=== PATIENT | male | born 1970 | race Two or more races ===

== ENCOUNTER → 2016-07-28 | Outpatient (CLI) | payer OTHER ==
[~2016-07-28] VITALS: Ht 185.4 cm; Wt 99.7 kg
[~2016-07-28] MED LIST: ASPI1TAB PO; CELE100C; FISH1000 PO; LIDOCAINE 2% INJ 100 MG/5 ML SDV (FOR ANES.) As Ordered ONE; LIPI20TA PO; MOTR200T44 PO; MULT1TAB10 PO; MULTIVIT; NS 1,000 ML IV SCH; PROPOFOL 200 MG/20 ML VIAL As Ordered ONE; SILD50TA PO; ZYBA150T PO
--- NOTE | 2016-07-28 11:22 | ROOR ---
Patient Name: José Miguel Gary Procedure Date: 07/28/2016 10:59 AM Date of : 1970 Age: 46 Room: [facility] Gender: Male Note Status: Finalized Procedure: Colonoscopy Indications: Screening in patient at increased risk: Family history of 1st-degree relative with colorectal cancer before age 60 years Providers: José Miguel LUGO MD Referring MD: DENNISE BOWDEN MD Requesting Provider: Medicines: Monitored Anesthesia Care Complications: No immediate complications. Procedure: Pre-Anesthesia Assessment: - The heart rate, respiratory rate, oxygen saturations, blood pressure, adequacy of pulmonary ventilation, and response to care were monitored throughout the procedure. The Colonoscope was introduced through the anus and advanced to the cecum, identified by appendiceal orifice and ileocecal valve. The colonoscopy was technically difficult and complex due to inadequate bowel prep. The patient tolerated the procedure well. The quality of the bowel preparation was poor. Findings: The perianal and digital rectal examinations were normal. (Colon Prep was POOR, Inadequate Visualisation) Impression: - Preparation of the colon was poor. - (Colon Prep was POOR, Inadequate Visualisation) - No specimens collected. Recommendation: - Repeat colonoscopy at the next available appointment because the bowel preparation was poor. José Miguel Lugo MD José Miguel LUGO MD 07/28/2016 11:21:34 AM This report has been signed electronically. Number of Addenda: 0 Note Initiated On: 07/28/2016 10:59 AM Estimated Blood Loss: Estimated blood loss: none.
[2016-07-28 11:40] VITALS: BP 121/70
== END ==
LOC: M OPP 10:37
PROVIDERS: ATTEND Internal Medicine Gastroenterology
DX: K62.5 Hemorrhage of anus and rectum (principal); Z80.0 Family history of malignant neoplasm of digestive organs; E78.5 Hyperlipidemia, unspecified; R06.02 Shortness of breath; M54.2 Cervicalgia; Z79.82 Long term (current) use of aspirin; Z79.899 Other long term (current) drug therapy

== ENCOUNTER → 2016-08-31 | Outpatient (CLI) | payer OTHER ==
[~2016-08-31] VITALS: Ht 185.4 cm; Wt 93.0 kg
[~2016-08-31] MED LIST changes: -LIDOCAINE 2% INJ 100 MG/5 ML SDV (FOR ANES.) As Ordered ONE; -PROPOFOL 200 MG/20 ML VIAL As Ordered ONE
== END | disposition home or self-care (01) ==
LOC: M OPP 11:50
PROVIDERS: ATTEND Internal Medicine Gastroenterology
DX: Z53.9 Procedure and treatment not carried out, unspecified reason (principal)

== ENCOUNTER 2020-06-26 15:58 | Emergency (ER) | payer OTHER, SELFPAY ==
[~2020-06-26] VITALS: Ht 185.4 cm; Wt 100.0 kg
[~2020-06-26 15:58] MED LIST changes: -ASPI1TAB PO; +ASPI81TA26 PO; -NS 1,000 ML IV SCH
[2020-06-26] MEDS ORDERED: ONDANSETRON 4MG/2ML VIAL IV ONE (16:15)
[2020-06-26] MEDS ORDERED: MORPHINE 4 MG/ML 1ML VIAL/SYRINGE (J2270) IV PRN (16:15)
--- NOTE | 2020-06-26 16:32 | REP ---
INDICATION: trauma COMPARISON: None. TECHNIQUE: AP, lateral, bilateral oblique views. FINDINGS: Fracture dislocation at the ankle with fractures of the distal fibular metaphysis, medial malleolus, and posterior malleolus. Associated disruption at the tibiotalar joint with overlying soft tissue swelling. IMPRESSION: Trimalleolar fracture dislocation at the ankle. <Electronically signed by Alex Lewis > 06/26/20 [id number]
[2020-06-26 16:49] LABS: HEMATOCRIT 50.1 % (42.0-52.0); HEMOGLOBIN 15.7 g/dl (13.5-17.5); MEAN CORPUSCULAR HEMOGLOBIN 28.8 pg (27.0-33.0); MEAN CORPUSCULAR HGB CONC 31.3 g/dl (32.0-36.5); MEAN CORPUSCULAR VOLUME 91.9 fl (80.0-96.0); PLATELET COUNT, AUTOMATED 276 10^3/uL (150-450); RED BLOOD COUNT 5.45 10^6/uL (4.30-6.10); WHITE BLOOD COUNT 14.9 10^3/uL (4.0-10.0)
[2020-06-26] MEDS ORDERED: VITA200044 PO (16:53)
[2020-06-26 17:09] LABS: BLOOD UREA NITROGEN 14 MG/DL (7-18); CALCIUM LEVEL 9.2 MG/DL (8.5-10.1); CARBON DIOXIDE LEVEL 26 MEQ/L (21-32); CHLORIDE LEVEL 106 MEQ/L (98-107); CREATININE FOR GFR 1.31 MG/DL (0.70-1.30); GLOMERULAR FILTRATION RATE > 60.0 (>56); GLUCOSE, FASTING 91 MG/DL (70-100); POTASSIUM SERUM 4.2 MEQ/L (3.5-5.1); SODIUM LEVEL 139 MEQ/L (136-145)
[2020-06-26 17:19] LABS: INR 0.97; PROTHROMBIN TIME 13.1 SECONDS (12.5-14.3)
[2020-06-26] MEDS ORDERED: PERC5TAB12 PO (17:31)
[2020-06-26] MEDS ORDERED: HYDROMORPHONE HCL 0.5 MG/ 0.5 ML SYRINGE (J1170 PER 1) IV ONE (17:45)
[2020-06-26 17:55] LABS: RSV AMPLIFICATION NEGATIVE (NEGATIVE)
--- NOTE | 2020-06-26 18:35 | REP ---
INDICATION: post reduction COMPARISON: 06/26/2020 at 4:17 p.m. TECHNIQUE: AP, lateral, bilateral oblique views. FINDINGS: Patient is status post casting and immobilization for trimalleolar ankle fractures. IMPRESSION: Trimalleolar ankle fractures. <Electronically signed by Alex Lewis > 06/26/20 [id number]
--- NOTE | 2020-06-26 18:38 | REPVR ---
PROCEDURE INFORMATION: Exam: CT Left Lower Extremity Without Contrast, Ankle Exam date and time: 06/26/2020 6:15 PM Age: 50 years old Clinical indication: Injury or trauma; Fall; Fracture, traumatic; Closed fracture; Ankle; Left; Not specified; Additional info: FX TECHNIQUE: Imaging protocol: CT of the Left lower extremity without contrast was performed. Exam focused on the ankle. Radiation optimization: All CT scans at this facility use at least one of these dose optimization techniques: automated exposure control; mA and/or kV adjustment per patient size (includes targeted exams where dose is matched to clinical indication); or iterative reconstruction. COMPARISON: CR Ankle, complete 06/26/2020 4:17 PM FINDINGS: Splint material is present involving the ankle. Soft tissue swelling is present without soft tissue defect. Improved osseous alignment after closed reduction and casting. Comminuted, predominantly transverse medial malleolar fracture is present with 2 mm articular surface incongruity between the medial aspect of the base of the medial malleolus and the tibial plafond and. 5 mm lateral subluxation of the talus relative to the distal tibial plafond. Vertical component of the distal medial tibial fracture extends through the medial metaphysis 3.5 cm cephalad to the ankle joint level. Comminuted intra-articular posterior malleolar fracture involving the posterior 1 cm of articular surface with impaction and comminution medially and extension through the posterior distal metaphysis 2.5 cm cephalad to the ankle joint level. Oblique fibular fracture centered 2 cm above the ankle joint, extending up to 4 cm above the ankle joint, with 5 mm posterior displacement of the dominant distal fragment and with anterior comminution. Overall improved alignment of the tibia and talar articulation on the sagittal images, with the previous posterior subluxation of the talus reduced to essentially anatomic. No acute calcaneal, talar, navicular or cuboid fracture in the cuneiform bones appear intact. IMPRESSION: Acute comminuted intra-articular trimalleolar ankle fracture with extension of fractures into the distal metaphyses and with residual 5 mm lateral subluxation of the talus relative to the distal tibial plafond. Electronically signed by: Zackary Jarquin On 06/26/2020 18:38:27 PM
--- NOTE | 2020-06-26 18:56 | ECGEPIP ---
[facility] - ED Test Date: 2020-06-26 Pat Name: PRATIMA ALVARES Department: Room: - Gender: Male Director Of Analytics: RAGINI : 1970 Requested By: Chantel Rodriguez Order Number: [id number] Reading MD: Chantel Rodriguez Measurements Intervals [place] Rate: 83 P: 49 [place]: 167 QRS: 62 QRSD: 74 T: 48 QT: 348 QTc: 411 Interpretive Statements SINUS RHYTHM No prior Electronically Signed on 06-26-2020 18:56:03 EST by Chantel Rodriguez
--- NOTE | 2020-06-26 19:05 | REP ---
INDICATION: REDUCTION COMPARISON: 06/26/2020 at 4:17 p.m. TECHNIQUE: Intraoperative fluoroscopic imaging using portable C-arm technique. FINDINGS: Images demonstrate the patient to be status post satisfactory closed reduction for ankle fractures. Total fluoroscopic time 69.5 seconds IMPRESSION: Status post satisfactory closed reduction <Electronically signed by Alex Lewis > 06/26/20 [id number]
[2020-06-26] MEDS ORDERED: OXYCODONE/APAP 5MG/325MG(BULK FOR ED) 1 TABLET PO ONE (20:15)
--- NOTE | 2020-06-26 20:27 | CR ---
CONSULTATION DATE: 06/26/2020 TIME: Approximately 6 p.m. CONSULTED SERVICE: Orthopedic Surgery. CONSULTED SURGEON: Joesph Mattson MD HISTORY OF PRESENT ILLNESS: This was a 50-year-old male who sustained a ground level fall after slipping on ice outside of his home, sustaining a left ankle trimalleolar ankle fracture dislocation which was closed. The patient presented to [facility] for further evaluation and treatment. The orthopedic surgeon, Joesph Mattson MD was consulted. The patient's left ankle was reduced and splinted with an L and U splint. He underwent a CT scan for surgical planning of the left closed trimalleolar ankle fracture. Of note, the patient is a beneficiary. PAST SURGICAL HISTORY: Deviated septum correction. PAST MEDICAL HISTORY: 1. Hyperlipidemia. 2. Smoking history of 30 years. MEDICATION ALLERGIES: None. CURRENT MEDICATIONS: 1. Lipitor. 2. Fish oil. SOCIAL HISTORY: The patient is a 1/2 pack a day smoker for 30 years for a total of 15 pack years, non-IV drug user, social drinker. REVIEW OF SYSTEMS: A 14 point review of systems was negative unless otherwise described in the HPI above. PHYSICAL EXAMINATION: Alert to person, time and place. Left lower extremity: The patient had an obvious deformity about his left ankle with ecchymosis and edema. His left foot appeared to be posteriorly translated relative to the tibia, indicative of a posteromedial ankle fracture dislocation. He otherwise had no skin breaks. This was a closed fracture. He had a palpable dorsalis pedis and posterior tibial arterial pulse, brisk capillary refill in the digits of his left foot. He had 5/5 motor strength to the EHL, FHL, tibial, gastrocs and peroneal musculature. He had sensation intact to light touch to the deep and superficial peroneal, sural, saphenous and tibial nerve distributions. He had moderate edema about his left ankle. Radiographs demonstrated a trimalleolar ankle fracture with posterior dislocation. Post-reduction radiographs demonstrated a trimalleolar fracture of the left ankle with its talus reduced within the mortise. He has a Estrada B fibular fracture, a comminuted medial malleolar fracture and a comminuted posterior malleolus fracture with significant comminution about the posteromedial aspect and some articular joint impaction about the posteromedial aspect of his distal tibia. CT scan: See above. IMPRESSION: This is a 50-year-old male with a closed left ankle fracture dislocation with a trimalleolar ankle fracture. PLAN: At this point in time, the patient was closed reduced and splinted in an L and U splint. He will undergo two weeks of soft tissue rest and L and U splint with the ankle reduced in order to optimize his soft tissues for operative intervention to include an open reduction and internal fixation of the left ankle. The patient's care will be transferred to [facility] since the patient is a beneficiary. At that point in time, the orthopedic surgeons at [facility] will perform a left ankle open reduction and internal fixation. He will follow up with [facility] for further surgical planning. The patient will be discharged home after given the appropriate discharge instructions.
[2020-06-26 20:57] VITALS: BP 101/66
[2020-06-30] MEDS ORDERED: CELE1CAP4 PO (11:02)
[2020-06-30] MEDS ORDERED: MULT-40 PO (11:02)
[2020-06-30] MEDS ORDERED: FISH1000 PO (11:02)
== END 2020-06-26 21:25 | disposition home or self-care (01) ==
LOC: M ED 15:58 → EDBD 15:58 → M ED 21:25
DX: S82.852A Displaced trimalleolar fracture of left lower leg, initial encounter for closed fracture (principal); W00.0XXA Fall on same level due to ice and snow, initial encounter; Y92.009 Unspecified place in unspecified non-institutional (private) residence as the place of occurrence of the external cause; Y93.9 Activity, unspecified; Y99.9 Unspecified external cause status; E78.5 Hyperlipidemia, unspecified
CPT/HCPCS: 27818; 73610; 73700; 80048; 85027; 85610; 87631; 93005; 96374; 96375; 99284; J1170; J2270; J2405

== ENCOUNTER 2020-07-02 08:09 | Day surgery (SDC) | payer OTHER ==
[~2020-07-02] VITALS: Ht 185.4 cm; Wt 106.8 kg
[~2020-07-02 08:09] MED LIST changes: +CELE1CAP4 PO; +LR 1,000 ML IV ONE; +MIDAZOLAM INJ 2MG/2ML VIAL (J2250 PER 1MG) IV PRN; +MULT-40 PO; +PERC5TAB12 PO; +VITA200044 PO; +ceFAZolin SOD 2 GM in IV 1 EA IV ONE; +fentaNYL 100 MCG/2 ML INJECTION (J3010) IV PRN
[2020-07-02] MEDS ORDERED: dexameTHASONE 10MG/1ML VIAL PRES.FREE (J1100 PER 1MG) XX ONE (09:30)
[2020-07-02] MEDS ORDERED: ROPIvacaine 0.5% 30ML INJECTION (J2795 PER 1MG) XX ONE (09:30)
[2020-07-02] MEDS ORDERED: LACRILUBE (AKWA TEARS) OPHTH OINT 3.5 GM As Ordered ONE (09:57)
[2020-07-02] MEDS ORDERED: propofoL 200 MG/20 ML VIAL As Ordered ONE (09:57)
[2020-07-02] MEDS ORDERED: LIDOCAINE 2% 100MG/5ML SDV (FOR ANES.) As Ordered ONE (09:57)
[2020-07-02] MEDS ORDERED: fentaNYL 100 MCG/2 ML INJECTION (J3010) As Ordered ONE ×3 (09:57→12:40)
[2020-07-02] MEDS ORDERED: ROCURONIUM BROMIDE 50 MG/5 ML VIAL As Ordered ONE ×3 (09:57→13:32)
[2020-07-02] MEDS ORDERED: MIDAZOLAM INJ 2MG/2ML VIAL (J2250 PER 1MG) As Ordered ONE (09:58)
[2020-07-02] MEDS ORDERED: PHENYLephrine 500MCG 5ML (100MCG/ML) SYRINGE As Ordered ONE (11:41)
[2020-07-02] MEDS ORDERED: ePHEDrine SULFATE 25 MG/5 ML(5MG/ML) SYRINGE As Ordered ONE (11:47)
[2020-07-02 12:10] LABS: AMPHETAMINES URINE REFLEX NEGATIVE (NEGATIVE); BARBITURATES URINE REFLEX NEGATIVE (NEGATIVE); BENZODIAZEPINES URINE REFLEX PENDING CONFIRMATION (NEGATIVE); CANNABINOIDS URINE REFLEX NEGATIVE (NEGATIVE); COCAINE METABOLITE URINE REFLE NEGATIVE (NEGATIVE); METHADONE URINE REFLEX NEGATIVE (NEGATIVE); OPIATES URINE REFLEX NEGATIVE (NEGATIVE); PHENCYCLIDINE URINE REFLEX NEGATIVE (NEGATIVE)
[2020-07-02] MEDS ORDERED: HYDROmorphone HCL 2 MG/ML 1ML VIAL (J1170) As Ordered ONE (14:24)
[2020-07-02] MEDS ORDERED: ceFAZolin 2 GM/D5W 50 ML IV BAG (J0690 PER 500MG) As Ordered ONE (14:41)
[2020-07-02] MEDS ORDERED: SUGAMMADEX SODIUM 500 MG/5 ML VIAL (BRIDION) As Ordered ONE (15:12)
[2020-07-02] MEDS ORDERED: ONDANSETRON 4MG/2ML VIAL As Ordered ONE (15:49)
[2020-07-02] MEDS ORDERED: BUPIVACAINE HCL 0.5% 30 ML VIAL As Ordered ONE (16:06)
--- NOTE | 2020-07-02 16:28 | REP ---
INDICATION: LEFT ANKLE FRACTURE. COMPARISON: Comparison ankle radiographs are from June the 2020.. TECHNIQUE: Forty views. 211 seconds of fluoroscopy time is reported. FINDINGS: A sequence of 40 last image hold fluoroscopically obtained spot radiographs of the ankle document open reduction internal fixation. IMPRESSION: Procedural imaging. <Electronically signed by Lake Escobar > 07/02/20 [id number]
[2020-07-02] MEDS ORDERED: fentaNYL 100 MCG/2 ML INJECTION (J3010) IV PRN (17:00)
[2020-07-02] MEDS ORDERED: ONDANSETRON 4MG/2ML VIAL IV PRN ×2 (17:00→19:00)
[2020-07-02] MEDS ORDERED: LR 1,000 ML IV SCH (17:00)
[2020-07-02 18:00] VITALS: BP 140/76
[2020-07-02 18:26] VITALS: BP 133/77
--- NOTE | 2020-07-02 19:31 | RO ---
OPERATIVE NOTE DATE OF OPERATION: 07/02/2020 TIME: 11:45 a.m. PREOPERATIVE DIAGNOSIS: Left ankle trimalleolar fracture, closed. POSTOPERATIVE DIAGNOSIS: Left ankle trimalleolar fracture, closed. NAME OF OPERATION: Left ankle open reduction and internal fixation. SURGEON: Joesph Mattson MD ASSISTANTS: SINA Youssef and Pillo Ruby MD SUPERVISING ATTENDING: Joesph Mattson MD FINDINGS: Left ankle trimalleolar fracture. INDICATIONS: This was a 50-year-old male who sustained a ground-level fall on the ice on the June,. The patient went to the [facility] for further evaluation and treatment and then was referred to the [facility], orthopedic department for further care given that he was Beneficiary. The patient was indicated for a left ankle open reduction and internal fixation to treat his left ankle fracture. ANESTHESIA: GETA. TOURNIQUET TIME: 117 minutes and then a 30 minute break and then 120 minutes. IMPLANTS: Synthes. IV ANTIBIOTICS: Two doses of 2 grams of Ancef. IV FLUIDS: Please see anesthesia report. ESTIMATED BLOOD LOSS: 75 mL SPECIMENS: None CULTURES: None. PROCEDURE IN DETAIL: The patient was met in the preoperative holding area where the patient's operative extremity was signed, the patient's consent was confirmed to be correct, and the patient's identity was confirmed to be correct. The patient was then transported to the operating theater where he was placed prone on a radiolucent flat-top surgical bed. Safety straps secured the patient to the bed. All bony prominences were well padded. The calves of bilateral lower extremities had SCDs placed. A timeout was called. This confirmed the correct patient, correct operative extremity and correct consent. All staff was in agreement. We began the case by obtaining fluoroscopy to determine the level of the fracture and the level of the ankle joint. We then marked our skin incision which was a posteromedial incision to the distal tibia just medial to the medial border of the Achilles tendon approximately 4-inches in length. The skin was sharply incised. We then incised the fascia of the FHL to further dissect the tibial nerve which was then protected throughout the case. We then elevated the FHL muscle belly from the distal tibia to expose the fracture. There were two main posterior pieces. These were cleaned using a curette and a scalpel. We then copiously irrigated the fracture hematoma. These were then reduced into position using a ball-point spike and provisional fixation was secured using thin K-wires. We then obtained fluoroscopy to determine that we were satisfied with the fracture provisional reduction. We then placed a 1/4 tubular 7-hole plate about the more posteromedial fracture fragment and secured this in place in buttress fashion using two cortical screws and placed one additional distal screw through the fragment in lag fashion in order to further secure the posteromedial posterior malleolus fragment in position. We then turned our attention to the more lateral of the two posterior malleolar fracture fragments. This was secured using three K-wires. We then placed an L-plate in buttress fashion to secure this fragment into position using two cortical screws. We then used three additional locking screws in order to provide rafting which would raft an independent intra-articular osteochondral piece into position. After this point in time, we obtained fluoroscopic imaging that demonstrated that we satisfied with the fracture reduction and implant placement. We then copiously irrigated the surgical site. Using three liters of normal saline, we closed the dermal layer using 2-0 Vicryl and the skin using interrupted 3-0 nylon. The dressings were then removed and the patient was flipped supine. The patient got a tourniquet holiday for 45 minutes. At this point, a safety strap secured the patient to the bed. All bony prominences were well padded and the contralateral SCD remained in place. The patient was then draped in the usual sterile fashion in the supine position. We turned our attention to the lateral distal fibula. A scalpel was used to incise the skin overlying the fracture approximately 3 inches in length. We then used electrocautery to make our way down to the fractured fragment of the distal fibula. We identified the fracture, cleaned it using a curette and copious irrigation. We then reduced our fragment using a [id number]-czkkt bone-reducing clamp. We then placed two 2.7 mm lag screws medial to lateral through the spiral fracture of the distal fibula to lie interposition. This provided provisional fixation. We then placed a distal locking lateral fibular plate into position and secured this with thin wires. We used fluoroscopy to demonstrate that we were satisfied the yarsanism of our fibular length, fracture reduction and implant placement. We next secured this proximally using two cortical screws and secured it distally using four locking screws using fluoroscopy throughout to ensure that we did not violate the ankle joint. We then turned our attention to the medial malleolus. We made a small 1 inch incision about the medial malleolus in order to clean the medial malleolar fracture site using copious irrigation and curette. Once this was cleaned, we reduced it provisionally using a [id number]-vg-[id number] bone reducing clamp using a airplane pilot commercial hole in the proximal aspect of the medial malleolus, then placed a small unicortical mini-frag plate in order to provisionally reduce our medial malleolar fragment. We then secured the medial malleolar fracture using two parallel, partially-threaded cannulated 4.0 mm screws through the apex of the medial malleolus, crossing the fracture fragment, measuring 50 mm in length. These were parallel on the lateral view and superimposed on the AP view. Once these were in position, we compressed by hand to ensure that we had equal compression across the fracture site. At this point in time, were satisfied with our reduction as well as our compression using the screws and removed our unicortical plate which had been used for provisional fixation. We copiously irrigated the medial malleolar incision as well as the lateral fibular incision and closed the dermal layer using 2-0 Vicryl. We then closed both the medial and lateral incisions using 3-0 nylon in interrupted fashion. We placed Xeroform about all the surgical incisions to include the medial, lateral and posteromedial incisions. We placed 4x4 gauze over all the incisions followed by Webril. The patient was then placed in a well-padded L and U splint with dorsiflexion. The patient was extubated without complication and transported to the postanesthesia care unit. At this point in time, the patient will be admitted for 23 hours for pain control and surveillance. He will be nonweightbearing to the left lower extremity. Physical therapy will instruct the patient how to use crutches. He will be discharged within 23 hours home. He receives his postoperative pain medications at his preoperative appointment. He will be nonweightbearing to the left lower extremity and maintain his L and U splint. In two weeks, we will see him at the [facility] for a wound check and transfer him to a [facility] boot and he will initiate range of motion exercises and physical therapy about his left ankle.
[2020-07-02 19:44] VITALS: BP 132/79
[2020-07-02 21:00] VITALS: O2SAT 96
[2020-07-02 21:37] VITALS: BP 132/79
[2020-07-02] MEDS: DOCUSATE SODIUM 100MG CAPSULE PO SCH (21:43)
[2020-07-02] MEDS ORDERED: PERCOCET 5MG/325MG TAB PO PRN (22:30)
[2020-07-02] MEDS: PERCOCET 5MG/325MG TAB PO PRN (22:48)
[2020-07-03 02:00] VITALS: BP 113/74
[2020-07-03] MEDS: PERCOCET 5MG/325MG TAB PO PRN ×4 (04:57→21:35)
[2020-07-03 06:00] VITALS: BP 116/65
[2020-07-03] MEDS ORDERED: KETOROLAC 30 MG/ML 1ML VIAL IV ONE (06:00)
[2020-07-03] MEDS ORDERED: PERC5TAB12 PO (06:20)
[2020-07-03] MEDS ORDERED: ECOT81TA5 PO (06:20)
[2020-07-03] MEDS: DOCUSATE SODIUM 100MG CAPSULE PO SCH ×2 (09:10→20:29)
[2020-07-03 10:00] VITALS: BP 121/65
[2020-07-03 14:00] VITALS: BP 114/82
[2020-07-03] MEDS ORDERED: PERCOCET 5MG/325MG TAB PO PRN (18:29)
[2020-07-03 20:27] VITALS: BP 124/65
[2020-07-03 21:00] VITALS: O2SAT 96
[2020-07-03] MEDS ORDERED: MORPHINE 15 MG SA TAB PO ONE (23:00)
[2020-07-04] MEDS: PERCOCET 5MG/325MG TAB PO PRN ×3 (01:17→12:18)
[2020-07-04 06:00] VITALS: BP 124/87
[2020-07-04] MEDS: DOCUSATE SODIUM 100MG CAPSULE PO SCH (08:18)
[2020-07-04] MEDS ORDERED: MORPHINE 15 MG SA TAB PO SCH (09:00)
[2020-07-06 23:16] LABS: Benzodiazepines Negative (Cutoff=300)
== END 2020-07-04 13:00 | disposition home or self-care (01) ==
LOC: M SDC 08:09 → M MS5PR 18:00 → M SDC 07-04 13:00
PROVIDERS: ATTEND Orthopaedic Surgery
DX: S82.852A Displaced trimalleolar fracture of left lower leg, initial encounter for closed fracture (principal); W00.0XXA Fall on same level due to ice and snow, initial encounter; Y92.89 Other specified places as the place of occurrence of the external cause; Y93.9 Activity, unspecified; Y99.9 Unspecified external cause status; E78.5 Hyperlipidemia, unspecified; F17.218 Nicotine dependence, cigarettes, with other nicotine-induced disorders; Z79.899 Other long term (current) drug therapy; Z91.81 History of falling
CPT/HCPCS: 27822; 36415; 64445; 76000; 80307; 84600; 96374; 97161; 97530; C1713; G0480; J0690; J1170; J1885; J2250; J2370; J2405; J3010

== ENCOUNTER → 2022-06-12 | Outpatient (CLI) | payer OTHER ==
[~2022-06-12] MED LIST changes: +ECOT81TA5 PO; -LR 1,000 ML IV ONE; -MIDAZOLAM INJ 2MG/2ML VIAL (J2250 PER 1MG) IV PRN; -ceFAZolin SOD 2 GM in IV 1 EA IV ONE; -fentaNYL 100 MCG/2 ML INJECTION (J3010) IV PRN
== END ==
LOC: M RAD 09:07
PROVIDERS: ATTEND Physician Assistant Medical
DX: Z87.891 Personal history of nicotine dependence (principal)

== ENCOUNTER → 2023-09-07 | Outpatient (CLI) | payer OTHER | LOC: M RAD 10:24 | PROVIDERS: ATTEND Physician Assistant Medical | DX: Z12.2 Encounter for screening for malignant neoplasm of respiratory organs (principal); Z87.891 Personal history of nicotine dependence ==

== ENCOUNTER → 2024-11-06 | Outpatient (CLI) | payer OTHER | LOC: M RAD 08:35 | PROVIDERS: ATTEND Physician Assistant Medical | DX: Z87.891 Personal history of nicotine dependence (principal) ==